=== PATIENT | female | born 1985 | race Caucasian/White ===

== ENCOUNTER 2019-01-07 09:56 | Inpatient (IN) ==
[2019-01-07] MEDS ORDERED: Metoclopramide Inj 10 MG/2 ML VIAL IV ONE (10:00)
[2019-01-07] MEDS ORDERED: Oxytocin 20 Units + LR 20 UNIT/1,000 ML BAG IV SCH ×2 (10:00→15:00)
[2019-01-07] MEDS ORDERED: LIDOCAINE HCL 2 % 10 ML JELLY URO-JECT TOPICAL PRN (10:00)
[2019-01-07] MEDS ORDERED: LIDOCAINE W/ SODIUM BICARB 0.5 ML SYR SUBD PRN (10:00)
[2019-01-07] MEDS ORDERED: FAMOTIDINE 20 MG/2 ML VIAL IVP ONE (10:00)
[2019-01-07] MEDS ORDERED: Lactated Ringers 1,000 ML PRIMARY IV SCH (10:00)
[2019-01-07] MEDS ORDERED: CefOXitin Inj 2 GM in Sodium Chloride 0.9% 100 ML IV ONE (10:00)
[2019-01-07] MEDS ORDERED: Lactated Ringers 1,000 ML PRIMARY IV ONE (10:00)
[2019-01-07] MEDS ORDERED: CITRIC ACID/SODIUM CITRATE 30 ML CUP PO ONE (10:00)
[2019-01-07 11:05] LABS: Hematocrit [HCT] 41.1 % (37.0-47.0); Hemoglobin [HGB] 13.7 g/dL (12.0-16.0); MEAN CORPUSCULAR HGB CONC 33.3 g/dL (33-37); MEAN CORPUSCULAR VOLUME 89.2 FL (81-99); RED BLOOD COUNT 4.61 10^6/uL (4.20-5.40)
[2019-01-07 11:06] LABS: MEAN PLATELET VOLUME 11.6 FL (7.4-12.2)
[2019-01-07 11:10] LABS: BLOOD UREA NITROGEN 12 mg/dL (7-22); BUN/CREATININE RATIO 17.14 (6-20); SERUM ALBUMIN 3.4 g/dL (3.5-4.8); Uric Acid 6.1 mg/dl (2.5-7.0)
[2019-01-07] MEDS ORDERED: Oxytocin 20 Units + LR 20 UNIT/1,000 ML BAG IV ONE (11:32)
[2019-01-07] MEDS ORDERED: Sodium Chloride 0.9% vial 10 ML ONE (11:56)
[2019-01-07] MEDS ORDERED: PHENYLEPHRINE 10,000 MCG/1 ML VIAL ONE (11:56)
[2019-01-07] MEDS ORDERED: ONDANSETRON 4 MG/2 ML VIAL ONE (12:21)
[2019-01-07] MEDS ORDERED: METHYLENE BLUE IV ONE (12:41)
[2019-01-07] MEDS ORDERED: KETOROLAC 15 MG/1 ML VIAL ONE (14:12)
[2019-01-07] MEDS ORDERED: KETOROLAC 15 MG/1 ML VIAL IVP PRN (14:12)
[2019-01-07] MEDS ORDERED: diphenhydrAMINE 50 MG/1 ML VIAL IV PRN (15:00)
[2019-01-07] MEDS ORDERED: D5-LR 1,000 ML PRIMARY IV SCH (15:00)
[2019-01-07] MEDS ORDERED: ONDANSETRON 4 MG/2 ML VIAL IVP PRN (15:00)
[2019-01-07] MEDS ORDERED: Naloxone Inj 0.01 MG, Sodium Chloride 0.9% vial 1 ML IVP PRN ×2 (15:00)
[2019-01-07] MEDS ORDERED: DIPH,PERTUSS,TET(ADACEL) VAC/PF 0.5 ML (Tdap) IM ONE (15:00)
[2019-01-07] MEDS ORDERED: Nalbuphine Inj 20 MG/ML Ampule IVP PRN (15:00)
[2019-01-07] MEDS ORDERED: diphenhydrAMINE 25 MG CAPSULE PO PRN (15:00)
[2019-01-07] MEDS ORDERED: FAMOTIDINE 20 MG/2 ML VIAL IVP PRN (15:00)
[2019-01-07] MEDS ORDERED: BUTORPHANOL TARTRATE 2 MG/1 ML VIAL IVP PRN (15:00)
[2019-01-07] MEDS ORDERED: HYDROmorphone 2 MG/1 ML IV PRN (15:00)
[2019-01-07] MEDS ORDERED: LANOLIN HPA 40 GM TUBE TOPICAL PRN (15:00)
[2019-01-07] MEDS ORDERED: CALCIUM CARBONATE 500 MG (TUMS) CHEWABLE TABLET PO PRN (15:00)
[2019-01-07] MEDS: ACETAMINOPHEN 325 MG TABLET PO PRN ×3 (15:21→23:08)
[2019-01-07] MEDS: oxyCODONE-ACETAMINOPHEN 5-325 TAB PO PRN ×3 (15:22→23:07)
[2019-01-07] MEDS: KETOROLAC 15 MG/1 ML VIAL IVP SCH ×2 (18:31→20:53)
[2019-01-07] MEDS: NIFEdipine 30 MG ER 24H TABLET PO SCH (19:08)
[2019-01-08] MEDS: KETOROLAC 15 MG/1 ML VIAL IVP SCH ×3 (01:49→14:05)
[2019-01-08] MEDS: oxyCODONE-ACETAMINOPHEN 5-325 TAB PO PRN ×4 (02:35→19:51)
[2019-01-08] MEDS: ACETAMINOPHEN 325 MG TABLET PO PRN ×4 (02:35→19:50)
[2019-01-08 05:20] LABS: Hematocrit [HCT] 38.1 % (37.0-47.0); Hemoglobin [HGB] 12.6 g/dL (12.0-16.0); MEAN CORPUSCULAR HGB CONC 33.1 g/dL (33-37); MEAN CORPUSCULAR VOLUME 90.5 FL (81-99); MEAN PLATELET VOLUME 11.4 FL (7.4-12.2); RED BLOOD COUNT 4.21 10^6/uL (4.20-5.40)
[2019-01-08 05:39] LABS: BLOOD UREA NITROGEN 9 mg/dL (7-22); BUN/CREATININE RATIO 11.25 (6-20); SERUM ALBUMIN 2.8 g/dL (3.5-4.8); Uric Acid 5.8 mg/dl (2.5-7.0)
[2019-01-08] MEDS: predniSONE Tab 20 MG TAB PO SCH (08:19)
[2019-01-08] MEDS: NIFEdipine 30 MG ER 24H TABLET PO SCH (08:20)
[2019-01-08] MEDS: Senna/Docusate Tab 1 TAB TAB PO SCH ×2 (08:20→20:32)
[2019-01-08] MEDS: Prenatal Multivitamin Tab 1 TAB TAB PO SCH (08:20)
[2019-01-08] MEDS ORDERED: CALCIUM GLUCONATE 100 MG/1 ML - 10 ML IVP PRN (19:14)
[2019-01-08] MEDS ORDERED: Magnesium Sulfate 4gm (Premix) 4 GM/100 ML BAG IV ONE (19:14)
[2019-01-08] MEDS: IBUPROFEN 800 MG TABLET PO SCH (20:32)
[2019-01-08] MEDS: Magnesium Sulfate (Premix) 20 GM/500 ML BAG IV SCH (21:03)
[2019-01-09] MEDS: oxyCODONE-ACETAMINOPHEN 5-325 TAB PO PRN ×3 (03:07→16:56)
[2019-01-09] MEDS: ACETAMINOPHEN 325 MG TABLET PO PRN ×3 (03:08→16:55)
[2019-01-09] MEDS: IBUPROFEN 800 MG TABLET PO SCH ×3 (05:33→19:48)
[2019-01-09] MEDS: Magnesium Sulfate (Premix) 20 GM/500 ML BAG IV SCH ×2 (07:06→17:19)
[2019-01-09] MEDS: NIFEdipine 30 MG ER 24H TABLET PO SCH (09:00)
[2019-01-09] MEDS: Prenatal Multivitamin Tab 1 TAB TAB PO SCH (09:26)
[2019-01-09] MEDS: Senna/Docusate Tab 1 TAB TAB PO SCH ×2 (09:27→21:16)
[2019-01-09] MEDS: predniSONE Tab 20 MG TAB PO SCH (09:37)
[2019-01-09 10:24] LABS: BLOOD UREA NITROGEN 6 mg/dL (7-22); BUN/CREATININE RATIO 8.57 (6-20); SERUM ALBUMIN 3.4 g/dL (3.5-4.8); Uric Acid 5.9 mg/dl (2.5-7.0)
[2019-01-09 10:24] LABS: Hematocrit [HCT] 40.4 % (37.0-47.0); Hemoglobin [HGB] 13.1 g/dL (12.0-16.0); MEAN CORPUSCULAR VOLUME 89.6 FL (81-99); RED BLOOD COUNT 4.51 10^6/uL (4.20-5.40)
[2019-01-09 10:25] LABS: MEAN CORPUSCULAR HGB CONC 32.4 g/dL (33-37); MEAN PLATELET VOLUME 11.1 FL (7.4-12.2)
[2019-01-09] MEDS ORDERED: NIFEdipine 30 MG ER 24H TABLET PO ONE (19:22)
[2019-01-10] MEDS: ACETAMINOPHEN 325 MG TABLET PO PRN (01:44)
[2019-01-10] MEDS: IBUPROFEN 800 MG TABLET PO SCH ×3 (03:42→20:12)
[2019-01-10] MEDS: Magnesium Sulfate (Premix) 20 GM/500 ML BAG IV SCH (03:43)
[2019-01-10 05:53] LABS: Hemoglobin [HGB] 14.3 g/dL (12.0-16.0); RED BLOOD COUNT 4.83 10^6/uL (4.20-5.40)
[2019-01-10 05:54] LABS: MEAN CORPUSCULAR HGB CONC 33.3 g/dL (33-37); MEAN PLATELET VOLUME 10.3 FL (7.4-12.2)
[2019-01-10 06:11] LABS: BLOOD UREA NITROGEN 8 mg/dL (7-22); BUN/CREATININE RATIO 11.42 (6-20); SERUM ALBUMIN 3.6 g/dL (3.5-4.8); Uric Acid 5.4 mg/dl (2.5-7.0)
[2019-01-10] MEDS ORDERED: NIFEdipine 30 MG ER 24H TABLET PO SCH ×2 (09:00)
[2019-01-10] MEDS: Prenatal Multivitamin Tab 1 TAB TAB PO SCH (09:15)
[2019-01-10] MEDS: NIFEdipine 30 MG ER 24H TABLET PO SCH ×2 (09:15→20:13)
[2019-01-10] MEDS: Senna/Docusate Tab 1 TAB TAB PO SCH ×2 (09:15→20:12)
[2019-01-10] MEDS: predniSONE Tab 20 MG TAB PO SCH (09:15)
[2019-01-11] MEDS: IBUPROFEN 800 MG TABLET PO SCH ×2 (07:32→14:14)
[2019-01-11 08:34] LABS: Hemoglobin [HGB] 13.8 g/dL (12.0-16.0); MEAN CORPUSCULAR HGB CONC 32.9 g/dL (33-37); MEAN CORPUSCULAR VOLUME 90.3 FL (81-99); RED BLOOD COUNT 4.65 10^6/uL (4.20-5.40)
[2019-01-11 08:35] LABS: MEAN PLATELET VOLUME 10.1 FL (7.4-12.2)
[2019-01-11 08:41] LABS: BLOOD UREA NITROGEN 14 mg/dL (7-22); SERUM ALBUMIN 3.7 g/dL (3.5-4.8); Uric Acid 5.3 mg/dl (2.5-7.0)
[2019-01-11] MEDS: Senna/Docusate Tab 1 TAB TAB PO SCH ×3 (09:21→21:00)
[2019-01-11] MEDS: NIFEdipine 30 MG ER 24H TABLET PO SCH ×2 (09:21→20:27)
[2019-01-11] MEDS: Prenatal Multivitamin Tab 1 TAB TAB PO SCH (09:21)
[2019-01-11] MEDS: predniSONE Tab 20 MG TAB PO SCH (09:21)
[2019-01-11] MEDS ORDERED: LABETALOL 100 MG TABLET PO ONE (15:09)
[2019-01-11] MEDS: LABETALOL 100 MG TABLET PO SCH (20:27)
[2019-01-11] MEDS: ACETAMINOPHEN 325 MG TABLET PO PRN (20:38)
[2019-01-12] MEDS: ACETAMINOPHEN 325 MG TABLET PO PRN ×5 (01:06→19:37)
[2019-01-12 05:10] LABS: Hemoglobin [HGB] 13.1 g/dL (12.0-16.0); RED BLOOD COUNT 4.37 10^6/uL (4.20-5.40)
[2019-01-12 05:11] LABS: Hematocrit [HCT] 39.5 % (37.0-47.0); MEAN CORPUSCULAR HGB CONC 33.2 g/dL (33-37); MEAN CORPUSCULAR VOLUME 90.4 FL (81-99); MEAN PLATELET VOLUME 10.2 FL (7.4-12.2)
[2019-01-12 05:15] LABS: BLOOD UREA NITROGEN 19 mg/dL (7-22); BUN/CREATININE RATIO 27.14 (6-20); SERUM ALBUMIN 3.5 g/dL (3.5-4.8); Uric Acid 5.7 mg/dl (2.5-7.0)
[2019-01-12] MEDS: NIFEdipine 30 MG ER 24H TABLET PO SCH ×2 (09:23→20:28)
[2019-01-12] MEDS: predniSONE Tab 10 MG TAB PO SCH (09:23)
[2019-01-12] MEDS: Prenatal Multivitamin Tab 1 TAB TAB PO SCH (09:24)
[2019-01-12] MEDS: LABETALOL 100 MG TABLET PO SCH ×4 (09:24→22:04)
[2019-01-12] MEDS: Senna/Docusate Tab 1 TAB TAB PO SCH ×2 (09:25→22:04)
[2019-01-12 12:25] LABS: Hematocrit [HCT] 42.7 % (37.0-47.0); MEAN CORPUSCULAR HGB CONC 32.8 g/dL (33-37); MEAN CORPUSCULAR VOLUME 90.5 FL (81-99); MEAN PLATELET VOLUME 9.8 FL (7.4-12.2); RED BLOOD COUNT 4.72 10^6/uL (4.20-5.40)
[2019-01-12 12:29] LABS: BLOOD UREA NITROGEN 18 mg/dL (7-22); SERUM ALBUMIN 3.9 g/dL (3.5-4.8); Uric Acid 6.1 mg/dl (2.5-7.0)
[2019-01-13] MEDS: ACETAMINOPHEN 325 MG TABLET PO PRN ×4 (01:28→20:38)
[2019-01-13 04:48] LABS: Hemoglobin [HGB] 14.6 g/dL (12.0-16.0); RED BLOOD COUNT 4.96 10^6/uL (4.20-5.40)
[2019-01-13 04:49] LABS: Hematocrit [HCT] 45.2 % (37.0-47.0); MEAN CORPUSCULAR HGB CONC 32.3 g/dL (33-37); MEAN CORPUSCULAR VOLUME 91.1 FL (81-99); MEAN PLATELET VOLUME 9.6 FL (7.4-12.2)
[2019-01-13 05:34] LABS: BLOOD UREA NITROGEN 19 mg/dL (7-22); BUN/CREATININE RATIO 23.75 (6-20)
[2019-01-13] MEDS: Prenatal Multivitamin Tab 1 TAB TAB PO SCH (08:22)
[2019-01-13] MEDS: predniSONE Tab 10 MG TAB PO SCH (08:22)
[2019-01-13] MEDS: NIFEdipine 30 MG ER 24H TABLET PO SCH ×2 (08:23→20:38)
[2019-01-13] MEDS: LABETALOL 100 MG TABLET PO SCH ×3 (08:25→20:38)
[2019-01-13] MEDS: Senna/Docusate Tab 1 TAB TAB PO SCH (08:26)
[2019-01-13] MEDS ORDERED: NIFEdipine 30 MG ER 24H TABLET PO ONE (09:16)
[2019-01-13 19:55] VITALS: RESP 18
[2019-01-14] MEDS: ACETAMINOPHEN 325 MG TABLET PO PRN ×2 (02:22→10:35)
[2019-01-14 05:32] LABS: Hematocrit [HCT] 42.7 % (37.0-47.0); Hemoglobin [HGB] 14.1 g/dL (12.0-16.0); MEAN CORPUSCULAR VOLUME 89.3 FL (81-99); MEAN PLATELET VOLUME 9.5 FL (7.4-12.2); RED BLOOD COUNT 4.78 10^6/uL (4.20-5.40)
[2019-01-14 05:38] LABS: BLOOD UREA NITROGEN 20 mg/dL (7-22); BUN/CREATININE RATIO 28.57 (6-20); SERUM ALBUMIN 3.8 g/dL (3.5-4.8); Uric Acid 6.2 mg/dl (2.5-7.0)
[2019-01-14] MEDS: predniSONE Tab 10 MG TAB PO SCH (08:05)
[2019-01-14] MEDS: NIFEdipine 30 MG ER 24H TABLET PO SCH (08:06)
[2019-01-14] MEDS: Prenatal Multivitamin Tab 1 TAB TAB PO SCH (08:06)
[2019-01-14 08:14] VITALS: TEMP 97.4
[2019-01-14] MEDS ORDERED: LABETALOL 100 MG TABLET PO SCH (09:00)
[2019-01-14 13:17] VITALS: BP 121/81; O2SAT 97
== END 2019-01-14 14:26 | disposition home or self-care (01) | DRG 785 ==
LOC: OBOR 09:56 → OBIP 14:22
PROVIDERS: ADMIT Family Medicine; ATTEND Family Medicine